=== PATIENT | female | born 2000 | race African-American/Black ===

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

== ENCOUNTER 2021-11-20 08:39 | Emergency (ER) | payer OTHER | END 2021-11-20 10:17 | disposition home or self-care (01) | LOC: ERS 08:39 | DX: S46.912A Strain of unspecified muscle, fascia and tendon at shoulder and upper arm level, left arm, initial encounter (principal); X50.0XXA Overexertion from strenuous movement or load, initial encounter; Y92.89 Other specified places as the place of occurrence of the external cause; Y99.0 Civilian activity done for income or pay ==

== ENCOUNTER 2024-09-03 12:14 | Emergency (ER) | payer OTHER, SELFPAY ==
[2024-09-03] MEDS ORDERED: Acetaminophen 500 MG TAB ONE (12:16)
[2024-09-03] MEDS ORDERED: Ibuprofen 200 MG TAB ONE (12:16)
[2024-09-03] MEDS ORDERED: Ondansetron ODT 4 MG TAB ONE (12:16)
== END 2024-09-03 15:00 | disposition home or self-care (01) ==
LOC: ERS 12:14
DX: B34.9 Viral infection, unspecified (principal)
CPT/HCPCS: 87428; 99283; Q0162